=== PATIENT | male | born 1955 | race African-American/Black ===

== ENCOUNTER 2018-06-20 00:21 | Emergency (ER) | payer OTHER, MEDICARE ==
[~2018-06-20] VITALS: Ht 177.8 cm; Wt 95.3 kg
== END 2018-06-20 07:53 | disposition expired ==
LOC: EDBD 00:21 → ER 00:21
DX: I46.9 Cardiac arrest, cause unspecified (principal); N18.6 End stage renal disease; Z99.2 Dependence on renal dialysis
CPT/HCPCS: 92950